=== PATIENT | female | born 1955 ===

== ENCOUNTER 2025-07-11 10:00 | Day surgery (SDC) | payer OTHER ==
[2025-07-09 14:55] VITALS: BP 157/93
[~2025-07-11] VITALS: Ht 152.4 cm; Wt 75.7 kg
[~2025-07-11 10:00] MED LIST: ANASTROZOLE1 MG PO; COZAAR25 MG PO; HUMIRA40 MG/0.2 SQ; VITAMIN D310 MCG/1 M; [UNRECOGNIZED DRUG - OTHER]
[2025-07-11] MEDS ORDERED: CEFAZOLIN SODIUM 1,000 MG VIAL ONE (10:47)
[2025-07-11] MEDS ORDERED: ENALAPRILAT DIHYDRATE 1.25 MG/ML VIAL IV ONE (15:24)
== END 2025-07-11 17:50 | disposition home or self-care (01) ==
LOC: CIR.AMB 10:00
PROVIDERS: ATTEND Surgery
DX: C50.411 Malignant neoplasm of upper-outer quadrant of right female breast (principal); C50.412 Malignant neoplasm of upper-outer quadrant of left female breast; D48.7 Neoplasm of uncertain behavior of other specified sites